=== PATIENT | male | born 1980 | race Caucasian/White ===

== ENCOUNTER 2022-10-14 12:12 | Emergency (ER) | payer SELFPAY ==
[~2022-10-14] VITALS: Ht 180.3 cm; Wt 81.6 kg
--- NOTE | 2022-10-14 12:12 | NUR ---
pt to er bed 6 via amr
[2022-10-14 12:18] VITALS: BP 103/56
[2022-10-14 12:31] VITALS: BP 103/56
--- NOTE | 2022-10-14 12:45 | NUR ---
influ/marlen swab sent to lab
--- NOTE | 2022-10-14 13:10 | NUR ---
42YO MALE PT BIBA FROM HOME C/O SYNCOPE X1. PT RECALLS GOING TO RESTROOM AND WAKING UP ON BATHROOM FLOOR -HEAD INJURY. ABRASION NOTED IN L KNEE. REPORTS BODY ACHES, FEVER OF 101.9 , SOB AND SORE THROAT xLASTNIGHT W/ MILD RELIEF AFTER IBUPROFEN AND OTC COUGH MEDICATION. DRY COUGH AND TRICE LUNG SOUNDS NOTED. DENIES N/V/D, CHEST PAIN , CHILLS OR ANYONE SICK AT HOME. NOTES S/S TO WHEN HE PREVIOUSLY HAD COVID. PT AAOX4, SPEAKING IN CLEAR SENTENCES. RESPIRATIONS EVEN AND UNLABORED. HX DENIES NKA
--- NOTE | 2022-10-14 13:20 | NUR ---
Shabnam guerra in ED - 10/14/22 at 1320 by PHSEP MD RABAGO AT [facility] FOR EVALUATION
--- NOTE | 2022-10-14 13:20 | NUR ---
VILLA RABAGO AT BEDSIDE FOR EVALUATION
[2022-10-14] MEDS ORDERED: ALBU0.0912 INH (13:29)
[2022-10-14] MEDS ORDERED: ACET-10509 PO (13:29)
--- NOTE | 2022-10-14 13:30 | NUR ---
IV removed, catheter intact and site benign. Applied folded 4x4 gauze and tape to stop bleeding.
--- NOTE | 2022-10-14 13:35 | NUR ---
Patient discharged with v/s stable. Written and verbal after care instructions FOR COVID 19 given and explained. Patient alert, oriented and verbalized understanding of instructions. Ambulatory with steady gait. All questions addressed prior to discharge. ID band removed. Patient advised to follow up with PMD. Rx of TYLENOL XTRA STRENGTH AND ALBUTEROL SULFATE given. Opportunity to ask questions provided and answered.
--- NOTE | 2022-10-14 13:39 | NUR ---
The patient's care was reviewed and supervised by [facility], RN.
== END 2022-10-14 13:35 | disposition home or self-care (01) ==
LOC: MED 12:12
DX: U07.1 COVID-19 (principal)
CPT/HCPCS: 93005; 99284